=== PATIENT | female | born 1960 ===

== ENCOUNTER 2017-06-27 09:09 | Emergency (ER) | payer OTHER ==
[2017-06-27 09:22] VITALS: BP 150/91
--- NOTE | 2017-06-27 09:55 | UC ---
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 3 days ago fells like she is having spasms no bowel or bladder dysfunction no leg pain or paresthesias no f/c no n/v no UTI symptoms relief with ibuprofen - History of Current Complaint Chief Complaint: UCBackPain Stated Complaint: BACK PAIN Time Seen by Provider: 06/27/17 09:36 Hx Obtained From: Patient Onset/Duration: Gradual Onset, Lasting Days Timing: Constant Severity Initially: Mild Severity Currently: Mild Pain Intensity: 4 Pain Scale Used: 0-10 Numeric Back Pain: Is Diffuse Character: Aching, Throbbing, Spasmodic Aggravating Factor(s): Movement, Lifting, Bending, Walking, Cough Alleviating Factor(s): Rest, OTC Meds Associated Signs And Symptoms: Positive: Negative - Allergies/Home Medications Allergies/Adverse Reactions: Allergies Allergy/AdvReac Type Severity Reaction Status Date / Time Sulfa Antibiotics Allergy Hives Verified 06/27/17 09:16 Home Medications: Home Medications Ibuprofen [Ibuprofen 200 MG] 600 mg PO PRN 06/27/17 [History] PMH/Surg Hx/FS Hx/Imm Hx Previously Healthy: Yes - Surgical History Surgical History: Yes Surgery Procedure, Year, and Place: ta at 9yrs old - Family History Known Family History: Positive: Other - aunt of liver [place] Negative: Cardiac Disease, Hypertension, Diabetes - Social History Alcohol Use: Rare Substance Use Type: None Smoking Status (MU): Never Smoked Tobacco Review of Systems Constitutional: Negative Skin: Negative Eyes: Negative ENT: Negative Respiratory: Negative Cardiovascular: Negative Gastrointestinal: Negative Genitourinary: Negative Motor: Negative Neurovascular: Negative Musculoskeletal: Myalgia Neurological: Negative Psychological: Negative Is Patient Immunocompromised?: No All Other Systems Reviewed And Are Negative: Yes Physical Exam Triage Information Reviewed: Yes Appearance: Well-Appearing, No Pain Distress, Well-Nourished Vital Signs: Initial Vital Signs Temp 98.4 F 06/27/17 09:17 Pulse 73 06/27/17 09:17 Resp 16 06/27/17 09:17 BP 150/91 06/27/17 09:17 Pulse Ox 100 06/27/17 09:17 ENT: Positive: Hearing grossly normal. Negative: Nasal congestion, Nasal drainage, Hoarse voice Neck: Positive: Supple, Nontender, No Lymphadenopathy Respiratory: Positive: Lungs clear, Normal breath sounds, No respiratory distress, No accessory muscle use Cardiovascular: Positive: RRR, No Murmur Musculoskeletal: Positive: Strength Intact, ROM Intact, No Edema Neurological Exam: Normal Neurological: Positive: Alert Psychological Exam: Normal Psychological: Positive: Normal Response To Family Skin Exam: Normal Diagnostics - Laboratory Diagnostic Studies Completed/Ordered: Emi choudhury blood Back Pain Course/Dx - Course Course Of Treatment: advised of elevated BP and microscopic hematuria. advised to follow up on these issues - Differential Dx/Diagnosis Provider Diagnoses: acute lumbar strain. elevated BP. microscopic hematuria Discharge - Discharge Plan Condition: Stable Disposition: HOME Patient Education Materials: Low Back Strain (ED) Forms: *Work Release Referrals: [facility] [[place]] - 1 Week Additional Instructions: continue ibuprofen for pain recheck next week if not better your urine had microscopic evidence of blood in it and should be rechecked if you don't have a doctor call the physician referral center number provided Images Front/Back of Body, Lg ([place]): 1 - no mid line coney tenderness/she has bilateral paraspinous tenderness/-slr/ strenght5/5, sensory intact
== END 2017-06-27 10:17 | disposition home or self-care (01) ==
LOC: UCEAST 09:09
DX: S39.012A Strain of muscle, fascia and tendon of lower back, initial encounter (principal); Z88.2 Allergy status to sulfonamides; X58.XXXA Exposure to other specified factors, initial encounter; Y93.E9 Activity, other interior property and clothing maintenance; Y92.009 Unspecified place in unspecified non-institutional (private) residence as the place of occurrence of the external cause; R03.0 Elevated blood-pressure reading, without diagnosis of hypertension; R31.29 Other microscopic hematuria
CPT/HCPCS: 81003; 99201; G0463